=== PATIENT | male | born 1945 | race Hispanic/Latino ===

== ENCOUNTER → 2025-09-05 | Outpatient (CLI) | payer OTHER, MEDICAID ==
--- NOTE | 2025-09-05 23:36 | HMCIMG ---
EXAM: ABDOMINAL ULTRASOUND Technique: Grayscale and color Doppler ultrasound of the abdomen performed in longitudinal and transverse planes with targeted evaluation of the liver, gallbladder and biliary tree, pancreas, spleen, kidneys, aorta, and inferior vena cava. Clinical Information: Decreased white blood cell count. Comparison: None. Findings: Liver: Measures 16.2 cm in craniocaudal span, enlarged. Liver: Increased echogenicity compatible with diffuse hepatic steatosis; no focal lesion identified where visualized. Gallbladder and biliary tree: Gallbladder is normal in distention with wall thickness 1 mm; no pericholecystic fluid. Gallbladder and biliary tree: Common bile duct measures 6 mm. Pancreas: Visualized portions are normal in echotexture without focal lesion. Spleen: Measures 12.3 cm, within normal size limits. Right kidney: Measures 10.5 ??? 4.8 ??? 5.0 cm with preserved cortical echogenicity and thickness; no hydronephrosis. Left kidney: Measures 10.1 ??? 5.7 ??? 5.5 cm with preserved cortical echogenicity and thickness; no hydronephrosis. Aorta and inferior vena cava: Normal caliber aorta; inferior vena cava is patent. Peritoneum: No free intraperitoneal fluid. Impression: 1. Hepatomegaly with increased hepatic echogenicity, most consistent with hepatic steatosis; correlate with liver enzymes and metabolic risk factors. 2. Gallbladder without sonographic evidence of acute cholecystitis (wall 1 mm) and common bile duct caliber within normal limits at 6 mm. 3. Pancreas, spleen, kidneys, aorta, and inferior vena cava without acute abnormality; no ascites. /Alex
== END | disposition home or self-care (01) ==
LOC: RAH 09:20
PROVIDERS: ATTEND Internal Medicine Medical Oncology
DX: R16.0 Hepatomegaly, not elsewhere classified (principal); D72.819 Decreased white blood cell count, unspecified
CPT/HCPCS: 76700